=== PATIENT | female | born 1930 | race Caucasian/White ===

== ENCOUNTER 2018-10-29 18:37 | Inpatient (IN) | payer OTHER ==
[~2018-10-29] VITALS: Ht 160 cm; Wt 59.7 kg
[~2018-10-29 18:37] MED LIST: ASPI325EC PO; ATOR10 PO; CIPR500 PO; CLOP75 PO; DIAZ5 PO; DOC250 PO; HYDACE5 PO; LEVSOD50 PO; LEVSOD75 PO; LISI10 PO; LISI20 PO; LISI5 PO; MIRT15 PO; OXYACE5T PO; PROP60 PO
[2018-10-29 20:24] LABS: BASOPHILS ABSOLUTE AUTO 0.04 K/mm3 (0.00-0.23); BASOPHILS PERCENT AUTO 0 % (0-2); EOSINOPHILS ABSOLUTE AUTO 0.28 K/mm3 (0.00-0.68); EOSINOPHILS PERCENT AUTO 2 % (0-6); Hematocrit 39.3 % (33.0-51.0); Hemoglobin 12.1 g/dL (11.5-16.0); IMMATURE GRAN ABSOLUTE AUTO 0.06 K/mm3 (0.00-0.10); IMMATURE GRAN PERCENT AUTO 1 % (0-1); LYMPHOCYTES ABSOLUTE AUTO 1.33 K/mm3 (0.84-5.20); LYMPHOCYTES PERCENT AUTO 10 % (21-46); MONOCYTES ABSOLUTE AUTO 1.38 K/mm3 (0.16-1.47); MONOCYTES PERCENT AUTO 11 % (4-13); Mean Corpuscular HGB 29.1 pg (26.0-34.0); Mean Corpuscular HGB Conc 30.8 g/dL (31.5-36.5); Mean Corpuscular Volume 95 fL (80-100); Mean Platelet Volume 8.9 fL (9.1-12.4); NEUTROPHILS ABSOLUTE AUTO 9.73 K/mm3 (1.96-9.15); NEUTROPHILS PERCENT AUTO 76 % (41-73); Platelet Count 363 K/mm3 (150-400); RDW Coefficient Variation 13.5 % (11.7-14.2); RDW Standard Deviation 46.4 fL (35.1-46.3); Red Blood Cell Count 4.16 M/mm3 (3.80-5.20); White Blood Cell Count 12.82 K/mm3 (4.00-11.30)
[2018-10-29 20:43] LABS: Alanine Aminotransfer (ALT/SGP 16 U/L (12-78); Albumin, Blood 2.6 g/dL (3.4-5.0); Albumin/Globulin Ratio 0.4 (0.8-1.8); Alk Phos 109 U/L (50-136); Anion Gap 6 mmol/L (6-16); Aspartate Aminotrans (AST/SGOT 17 U/L (12-37); Bilirubin, Total 0.6 mg/dL (0.1-1.0); Blood Urea Nitrogen 12 mg/dL (8-24); Bun/Creatinine Ratio 20.2 (12.0-20.0); CO2, Blood 29 mmol/L (21-32); Chloride, Blood 105 mmol/L (98-108); Creatinine, Blood 0.59 mg/dL (0.40-1.00); Glomerular Filtration Rate >60 (60-); Glucose, Blood 88 mg/dL (70-99); Sodium, Blood 140 mmol/L (136-145); Total Protein, Blood 8.6 g/dL (6.4-8.2)
[2018-10-29 22:39] LABS: International Normalized Ratio 1.03; Prothrombin Time Results 10.9 Sec (9.7-11.5)
[2018-10-29 23:01] LABS: Source, Urine Clean Catch
[2018-10-29 23:05] LABS: Bilirubin, Urine Neg (Neg); Blood, Urine Neg (Neg); Glucose Qualitative, Urine Neg (Neg); Ketones, Urine Neg (Neg); Leukocyte Esterase, Urine Neg (Neg); Nitrite, Urine Neg (Neg); Protein, Urine Neg (Neg); Specific Gravity, Urine 1.005 (1.003-1.022); Urobilinogen, Urine NORM (Normal)
[2018-10-29 23:11] LABS: Appearance, Urine Clear (Clear); Color, Urine Yellow (P-Yellow)
[2018-10-30 01:12] LABS: Adenovirus Not Detected (NOT DETECT); Bordetella pertussis Not Detected (NOT DETECT); Chlamydophila pneumoniae Not Detected (NOT DETECT); Coronavirus 229E Not Detected (NOT DETECT); Coronavirus HKU1 Not Detected (NOT DETECT); Coronavirus NL63 Not Detected (NOT DETECT); Coronavirus OC43 Not Detected (NOT DETECT); Human Metapneumovirus Not Detected (NOT DETECT); Human Rhinovirus/Enterovirus Not Detected (NOT DETECT); Influenza A Not Detected (NOT DETECT); Influenza A/2009-H1 Not Detected (NOT DETECT); Influenza A/H1 Not Detected (NOT DETECT); Influenza A/H3 Not Detected (NOT DETECT); Influenza B Not Detected (NOT DETECT); Mycoplasma pneumoniae Not Detected (NOT DETECT); Parainfluenza Virus 1 Not Detected (NOT DETECT); Parainfluenza Virus 2 Not Detected (NOT DETECT); Parainfluenza Virus 3 Not Detected (NOT DETECT); Parainfluenza Virus 4 Not Detected (NOT DETECT); Respiratory Syncytial Virus Not Detected (NOT DETECT)
[2018-10-30 04:56] LABS: Hematocrit 32.4 % (33.0-51.0); Mean Corpuscular HGB 29.2 pg (26.0-34.0); Mean Corpuscular HGB Conc 30.9 g/dL (31.5-36.5); Mean Corpuscular Volume 95 fL (80-100); Mean Platelet Volume 8.9 fL (9.1-12.4); Platelet Count 314 K/mm3 (150-400); RDW Coefficient Variation 13.5 % (11.7-14.2); RDW Standard Deviation 46.3 fL (35.1-46.3); Red Blood Cell Count 3.43 M/mm3 (3.80-5.20); White Blood Cell Count 10.95 K/mm3 (4.00-11.30)
[2018-10-30 05:12] LABS: Alanine Aminotransfer (ALT/SGP 16 U/L (12-78); Albumin/Globulin Ratio 0.4 (0.8-1.8); Alk Phos 86 U/L (50-136); Anion Gap 6 mmol/L (6-16); Aspartate Aminotrans (AST/SGOT 15 U/L (12-37); Bilirubin, Total 0.8 mg/dL (0.1-1.0); Blood Urea Nitrogen 9 mg/dL (8-24); Bun/Creatinine Ratio 14.1 (12.0-20.0); CO2, Blood 26 mmol/L (21-32); Calcium, Blood 8.2 mg/dL (8.5-10.1); Chloride, Blood 109 mmol/L (98-108); Creatinine, Blood 0.64 mg/dL (0.40-1.00); Globulin, Blood 4.8 g/dL (2.2-4.0); Glomerular Filtration Rate >60 (60-); Glucose, Blood 85 mg/dL (70-99); Lactate Dehydrogenase (Ld),Bld 140 U/L (100-240); Potassium, Blood 3.8 mmol/L (3.5-5.5); Sodium, Blood 141 mmol/L (136-145); Total Protein, Blood 6.8 g/dL (6.4-8.2)
--- NOTE | 2018-10-30 06:10 | NUR ---
SHIFT SUMMARY PT IS AN 88 Y/O FEMALE, ADMITTED DURING THE NIGHT FOR PNA WITH A POSSIBLE EMPYEMA, ARRIVING ON THE FLOOR AT 2310. SHE IS A&O X 4, AND A SBA IN THE ROOM. THE PT DENIED ANY ACUTE SOB, NAUSEA OR PAIN, BUT DID REPORT AN INTERMITTENT NONPRODUCTIVE COUGH. VITALS STABLE. NO OTHER ACUTE CHANGES IN PT CONDITION NOTED. WILL CONTINUE TO MONITOR AND TREAT PER EMAR.
[2018-10-30 15:19] LABS: Automated BF RBC Count 0.057 M/mm3 (0-0); RBC Count, Body Fluid 57000 /mm3 (0-0)
[2018-10-30 15:32] LABS: Body Fluid WBC Count 22260 /mm3 (0-999)
[2018-10-30 15:42] LABS: Protein, Body Fluid 5.3 g/dL
[2018-10-30 15:58] LABS: Total Cell Count, Body Fluid 100
[2018-10-30 15:59] LABS: Appearance, Body Fluid Bloody (Clear); Color, Body Fluid Red (None-Yellow)
[2018-10-30 16:24] LABS: pH, Body Fluid 7.9
[2018-10-30 16:30] LABS: Lactate Dehydrogenase, Body Fl 5237 U/L
--- NOTE | 2018-10-30 18:21 | NUR ---
SHIFT SUMMARY PT HAS HAD NO COMPLAINTS SINCE THIS RN ASSUMED CARE OF PT. PT THOUGHT SHE WAS GOING HOME TODAY. THIS RN CALLED DR. FERNANDES AND TALKED WITH HIM ABOUT THIS AND HE REPORTS POSSIBLY TOMORROW. THIS RN LET THE PT KNOW THIS. NO DISTRESS AT THIS TIME. WILL CONTINUE TO MONITOR PT AND REPORT TO ONCOMING RN.
--- NOTE | 2018-10-31 06:45 | NUR ---
SHIFT SUMMARY PT IS A 88 Y/O FEMALE, ADMITTED FOR PNA. SHE IS A&O X 3, OCCASIONALLY FORGETFUL AND POSSIBLY CONFUSED AT TIMES. SHE WAS VERY EAGER TO LEAVE DURING THE NIGHT, ASKING MULTIPLE TIMES ABOUT "WHEN DOES THE DOCTOR COME AROUND", AND "WHEN DO WE GET BREAKFAST, LUNCH AND DINNER". PT HAD NO COMPLAINTS OF PAIN, NAUSEA OR SOB DURING THE NIGHT. VITALS STABLE. NO OTHER ACUTE CHANGES IN PT CONDITION NOTED. WILL CONTINUE TO MONITOR AND TREAT PER EMAR.
--- NOTE | 2018-10-31 14:05 | NUR ---
Pt is in bed resting and is doig much better today , encouraged pt and and offered prayers for ,the pt.
--- NOTE | 2018-10-31 19:02 | NUR ---
shift summary PATIENT PLEASANT, COOPERATIVE WITH CARE. HER IV WENT OUT TODAY AND WAS REPLACED BY MILADY VELASQUEZ. PATIENT DOES HAVE SOME CONFUSED MOMENT BUT OVERALL PLEASANT. NO ACUTE CONCERNS FROM PATIENT OR FAMILY DURING REPORT. WILL ASSESS FOR CHANGES AND PASS ON ANY SUGGESTIONS.
--- NOTE | 2018-11-01 04:03 | NUR ---
SHIFT SUMMARY PT HAD NO COMPLAINTS OR ISSUES NOTED. PT HAS SLEPT SINCE LEFT FOR THE NIGHT. PT CURRENTLY SLEEPING AND BREATHING EASY. CALL LIGHT IN REACH.
--- NOTE | 2018-11-01 18:37 | NUR ---
shift SUMMARY PATIENT HAS BEEN PLEASANT TODAY. NO ACUTE CONCERNS. SHE IS SCHEDULED FOR HER XRAY TOMORORW. NO SIGNS OR SYMPTOMS TODAY TO REPORT. SHE HAS GOTTEN UP INDEPENDENTLY IN THE ROOM.
--- NOTE | 2018-11-02 04:59 | NUR ---
SHIFT SUMMARY PT HAD NO ISSUES OR COMPLAINTS. PT HAS BEEN SLEEPING T/O SHIFT. PT CURRENTLY SLEEPING AND BREATHING EASY. CALL LIGHT IN REACH.
[2018-11-02] MEDS ORDERED: LEVO750 PO (12:34)
[2018-11-02] MEDS ORDERED: Augmentin 875-1 EACH PO (16:30)
--- NOTE | 2018-11-02 17:49 | NUR ---
DISCHARGE SUMMARY PATIENT PLEASANT. ALL INFORMATION GIVEN TO THE PATIENT AND HER . MEDICATIONS HAVE BEEN SENT TO THE PHARMACY AND TALKED OVER WITH THE PATIENT AND HER FAMILY. NO ACUTE CONCERNS AT TIME OF DISCHARGE. PATIENT SENT WITH PATIENT PACKET. PATIENT WHEELED OUT BY [facility].
== END 2018-11-02 18:00 | disposition home or self-care (01) | DRG 186 ==
LOC: ER 18:37 → MEDS 18:38 → ENPENDDIS 11-02 12:07 → MEDS 11-02 18:00
PROVIDERS: Emergency Medicine; ADMIT Internal Medicine
PROC: 0W993ZX Drainage of Right Pleural Cavity, Percutaneous Approach, Diagnostic (ICD-10-PCS; principal; 2018-10-30)
DX: J90 Pleural effusion, not elsewhere classified (principal); J18.1 Lobar pneumonia, unspecified organism; I10 Essential (primary) hypertension; E03.9 Hypothyroidism, unspecified; Z79.82 Long term (current) use of aspirin; Z86.73 Personal history of transient ischemic attack (TIA), and cerebral infarction without residual deficits
CPT/HCPCS: 32555; 36415; 71045; 71046; 71260; 80053; 81003; 83615; 83986; 84145; 84157; 85025; 85027; 85610; 85730; 87070; 87075; 87205; 87486; 87581; 87633; 87798; 88108; 89051; 92526; 92610; 96365-59; 96366; 96366-59; 96368; 96372; 96376; 99285-25; G0378; J1650; J2543; J3370; J7030; Q9967

== ENCOUNTER 2018-12-01 15:58 | Emergency (ER) | payer OTHER ==
[~2018-12-01] VITALS: Ht 172.7 cm; Wt 61.2 kg
[~2018-12-01 15:58] MED LIST changes: +Augmentin 875-1 EACH PO; +LEVO750 PO
[2018-12-01 17:26] LABS: BASOPHILS ABSOLUTE AUTO 0.03 K/mm3 (0.00-0.23); BASOPHILS PERCENT AUTO 0 % (0-2); EOSINOPHILS PERCENT AUTO 2 % (0-6); Hematocrit 39.9 % (33.0-51.0); IMMATURE GRAN ABSOLUTE AUTO 0.03 K/mm3 (0.00-0.10); IMMATURE GRAN PERCENT AUTO 0 % (0-1); LYMPHOCYTES ABSOLUTE AUTO 1.44 K/mm3 (0.84-5.20); LYMPHOCYTES PERCENT AUTO 18 % (21-46); MONOCYTES ABSOLUTE AUTO 0.81 K/mm3 (0.16-1.47); MONOCYTES PERCENT AUTO 10 % (4-13); Mean Corpuscular HGB Conc 30.1 g/dL (31.5-36.5); Mean Corpuscular Volume 93 fL (80-100); Mean Platelet Volume 9.3 fL (9.1-12.4); NEUTROPHILS ABSOLUTE AUTO 5.67 K/mm3 (1.96-9.15); NEUTROPHILS PERCENT AUTO 69 % (41-73); Platelet Count 317 K/mm3 (150-400); RDW Coefficient Variation 15.1 % (11.7-14.2); RDW Standard Deviation 51.5 fL (35.1-46.3); Red Blood Cell Count 4.29 M/mm3 (3.80-5.20); White Blood Cell Count 8.18 K/mm3 (4.00-11.30)
[2018-12-01 17:46] LABS: Alanine Aminotransfer (ALT/SGP 9 U/L (12-78); Albumin, Blood 2.9 g/dL (3.4-5.0); Albumin/Globulin Ratio 0.5 (0.8-1.8); Alk Phos 74 U/L (50-136); Anion Gap 7 mmol/L (6-16); Aspartate Aminotrans (AST/SGOT 19 U/L (12-37); Bilirubin, Total 0.6 mg/dL (0.1-1.0); Blood Urea Nitrogen 10 mg/dL (8-24); Bun/Creatinine Ratio 16.2 (12.0-20.0); CO2, Blood 28 mmol/L (21-32); Calcium, Blood 9.1 mg/dL (8.5-10.1); Chloride, Blood 103 mmol/L (98-108); Creatinine, Blood 0.62 mg/dL (0.40-1.00); Globulin, Blood 5.9 g/dL (2.2-4.0); Glomerular Filtration Rate >60 (60-); Glucose, Blood 86 mg/dL (70-99); Potassium, Blood 3.8 mmol/L (3.5-5.5); Sodium, Blood 138 mmol/L (136-145); Total Protein, Blood 8.8 g/dL (6.4-8.2)
== END 2018-12-02 00:29 | disposition home or self-care (01) ==
LOC: ER 15:58
PROVIDERS: Physician Assistant
DX: J90 Pleural effusion, not elsewhere classified (principal); Z79.899 Other long term (current) drug therapy; Z79.82 Long term (current) use of aspirin; I10 Essential (primary) hypertension; E03.9 Hypothyroidism, unspecified; Z86.73 Personal history of transient ischemic attack (TIA), and cerebral infarction without residual deficits
CPT/HCPCS: 36415; 71046; 80053; 83690; 85025; 99283-25

== ENCOUNTER 2018-12-09 20:20 | Inpatient (IN) | payer OTHER ==
[~2018-12-09] VITALS: Ht 160 cm; Wt 53.0 kg
[2018-12-09 21:44] LABS: BASOPHILS ABSOLUTE AUTO 0.03 K/mm3 (0.00-0.23); BASOPHILS PERCENT AUTO 0 % (0-2); EOSINOPHILS ABSOLUTE AUTO 0.04 K/mm3 (0.00-0.68); EOSINOPHILS PERCENT AUTO 0 % (0-6); Hematocrit 35.7 % (33.0-51.0); IMMATURE GRAN ABSOLUTE AUTO 0.03 K/mm3 (0.00-0.10); IMMATURE GRAN PERCENT AUTO 0 % (0-1); LYMPHOCYTES ABSOLUTE AUTO 0.73 K/mm3 (0.84-5.20); LYMPHOCYTES PERCENT AUTO 7 % (21-46); MONOCYTES ABSOLUTE AUTO 0.91 K/mm3 (0.16-1.47); MONOCYTES PERCENT AUTO 9 % (4-13); Mean Corpuscular HGB 28.5 pg (26.0-34.0); Mean Corpuscular HGB Conc 30.8 g/dL (31.5-36.5); Mean Corpuscular Volume 93 fL (80-100); Mean Platelet Volume 8.9 fL (9.1-12.4); NEUTROPHILS ABSOLUTE AUTO 8.76 K/mm3 (1.96-9.15); NEUTROPHILS PERCENT AUTO 83 % (41-73); Platelet Count 235 K/mm3 (150-400); RDW Coefficient Variation 14.8 % (11.7-14.2); RDW Standard Deviation 50.3 fL (35.1-46.3); Red Blood Cell Count 3.86 M/mm3 (3.80-5.20)
[2018-12-09 22:01] LABS: Alanine Aminotransfer (ALT/SGP 9 U/L (12-78); Albumin, Blood 2.8 g/dL (3.4-5.0); Albumin/Globulin Ratio 0.5 (0.8-1.8); Alk Phos 72 U/L (50-136); Anion Gap 6 mmol/L (6-16); Aspartate Aminotrans (AST/SGOT 18 U/L (12-37); Blood Urea Nitrogen 10 mg/dL (8-24); Bun/Creatinine Ratio 16.3 (12.0-20.0); CO2, Blood 28 mmol/L (21-32); Calcium, Blood 8.8 mg/dL (8.5-10.1); Chloride, Blood 105 mmol/L (98-108); Creatinine, Blood 0.61 mg/dL (0.40-1.00); Globulin, Blood 5.1 g/dL (2.2-4.0); Glomerular Filtration Rate >60 (60-); Glucose, Blood 103 mg/dL (70-99); Potassium, Blood 4.1 mmol/L (3.5-5.5); Sodium, Blood 139 mmol/L (136-145); Total Protein, Blood 7.9 g/dL (6.4-8.2)
[2018-12-10 11:04] LABS: Hematocrit 36.5 % (33.0-51.0); Hemoglobin 11.2 g/dL (11.5-16.0); Mean Corpuscular HGB 28.7 pg (26.0-34.0); Mean Corpuscular HGB Conc 30.7 g/dL (31.5-36.5); Mean Corpuscular Volume 94 fL (80-100); Platelet Count 203 K/mm3 (150-400); RDW Coefficient Variation 14.8 % (11.7-14.2); RDW Standard Deviation 50.8 fL (35.1-46.3); White Blood Cell Count 7.59 K/mm3 (4.00-11.30)
[2018-12-10 11:17] LABS: Alanine Aminotransfer (ALT/SGP 8 U/L (12-78); Albumin, Blood 2.5 g/dL (3.4-5.0); Albumin/Globulin Ratio 0.5 (0.8-1.8); Alk Phos 63 U/L (50-136); Anion Gap 3 mmol/L (6-16); Aspartate Aminotrans (AST/SGOT 15 U/L (12-37); Blood Urea Nitrogen 9 mg/dL (8-24); CO2, Blood 30 mmol/L (21-32); Calcium, Blood 8.3 mg/dL (8.5-10.1); Chloride, Blood 109 mmol/L (98-108); Creatinine, Blood 0.56 mg/dL (0.40-1.00); Globulin, Blood 4.7 g/dL (2.2-4.0); Glomerular Filtration Rate >60 (60-); Glucose, Blood 79 mg/dL (70-99); Potassium, Blood 3.9 mmol/L (3.5-5.5); Sodium, Blood 142 mmol/L (136-145); Total Protein, Blood 7.2 g/dL (6.4-8.2)
[2018-12-12] MEDS ORDERED: ACET500 PO (12:58)
== END 2018-12-12 14:46 | disposition home or self-care (01) | DRG 481 ==
LOC: ER 20:20 → SURS 22:53
PROVIDERS: Emergency Medicine; Orthopaedic Surgery; ADMIT Internal Medicine
PROC: 0QS734Z Reposition Left Upper Femur with Internal Fixation Device, Percutaneous Approach (ICD-10-PCS; principal; 2018-12-10 15:45)
DX: S72.002A Fracture of unspecified part of neck of left femur, initial encounter for closed fracture (principal); J90 Pleural effusion, not elsewhere classified; E03.9 Hypothyroidism, unspecified; I10 Essential (primary) hypertension; W18.30XA Fall on same level, unspecified, initial encounter; E78.5 Hyperlipidemia, unspecified; R13.10 Dysphagia, unspecified; I69.391 Dysphagia following cerebral infarction
CPT/HCPCS: 36415; 71045; 73502; 80053; 83605; 85025; 85027; 85730; 87040; 92526; 92610; 93005; 93010; 96374; 96375; 97116; 97162; 97530; 99285-25; C1713; C1769; J0360; J0690; J0780; J1100; J1650; J2370; J2405; J2704; J3010; J7030; J7120

== ENCOUNTER 2021-05-10 11:30 | Inpatient (IN) | payer OTHER, MEDICARE ==
[~2021-05-10] VITALS: Ht 167.6 cm; Wt 60.9 kg
[~2021-05-10 11:30] MED LIST changes: +ACET500 PO
[2021-05-10 11:57] LABS: BASOPHILS ABSOLUTE AUTO 0.03 K/mm3 (0.00-0.23); BASOPHILS PERCENT AUTO 0 % (0-2); EOSINOPHILS ABSOLUTE AUTO 0.08 K/mm3 (0.00-0.68); EOSINOPHILS PERCENT AUTO 1 % (0-6); Hematocrit 40.7 % (33.0-51.0); Hemoglobin 13.5 g/dL (11.5-16.0); IMMATURE GRAN ABSOLUTE AUTO 0.03 K/mm3 (0.00-0.10); IMMATURE GRAN PERCENT AUTO 0 % (0-1); LYMPHOCYTES ABSOLUTE AUTO 1.03 K/mm3 (0.84-5.20); LYMPHOCYTES PERCENT AUTO 14 % (21-46); MONOCYTES ABSOLUTE AUTO 0.58 K/mm3 (0.16-1.47); MONOCYTES PERCENT AUTO 8 % (4-13); Mean Corpuscular HGB 30.4 pg (26.0-34.0); Mean Corpuscular HGB Conc 33.2 g/dL (31.5-36.5); Mean Corpuscular Volume 92 fL (80-100); Mean Platelet Volume 9.6 fL (9.1-12.4); NEUTROPHILS ABSOLUTE AUTO 5.53 K/mm3 (1.96-9.15); NEUTROPHILS PERCENT AUTO 76 % (41-73); Platelet Count 241 K/mm3 (150-400); RDW Coefficient Variation 12.8 % (11.7-14.2); RDW Standard Deviation 42.8 fL (35.1-46.3); Red Blood Cell Count 4.44 M/mm3 (3.80-5.20); White Blood Cell Count 7.28 K/mm3 (4.00-11.30)
[2021-05-10 12:12] LABS: Alanine Aminotransfer (ALT/SGP 18 U/L (12-78); Albumin, Blood 3.2 g/dL (3.4-5.0); Albumin/Globulin Ratio 0.7 (0.8-1.8); Alk Phos 61 U/L (50-136); Anion Gap 5 mmol/L (6-16); Aspartate Aminotrans (AST/SGOT 30 U/L (12-37); Bilirubin, Total 0.5 mg/dL (0.1-1.0); Blood Urea Nitrogen 17 mg/dL (8-24); Bun/Creatinine Ratio 29.9 (12.0-20.0); CO2, Blood 27 mmol/L (21-32); Calcium, Blood 9.1 mg/dL (8.5-10.1); Chloride, Blood 110 mmol/L (98-108); Creatinine, Blood 0.57 mg/dL (0.40-1.00); Globulin, Blood 4.4 g/dL (2.2-4.0); Glomerular Filtration Rate >60 (60-); Glucose, Blood 100 mg/dL (70-99); Potassium, Blood 4.6 mmol/L (3.5-5.5); Sodium, Blood 142 mmol/L (136-145); Total Protein, Blood 7.6 g/dL (6.4-8.2)
[2021-05-10] MEDS ORDERED: ACET325 PO (17:38)
[2021-05-10] MEDS ORDERED: ASPI81CH PO (17:39)
[2021-05-10] MEDS ORDERED: ATOR10 PO (17:40)
[2021-05-10] MEDS ORDERED: EUTHYROX50 MCG PO (17:41)
[2021-05-10] MEDS ORDERED: ZESTRIL40 M1 PO (17:43)
[2021-05-10] MEDS ORDERED: INDERAL XL120 MG PO (17:44)
--- NOTE | 2021-05-10 19:22 | NUR ---
TRANSFER NOTE REPORT BY PREVIOUS RN. PT TO ROOM 301 BY RAYA AND TRANSFERRED TO BED. CALL LIGHT IN REACH. BED IN LOWEST POSITION.
--- NOTE | 2021-05-10 19:23 | NUR ---
PT NOT ALERT AT TIME OF ARRIVAL TO ROOM. PT WILL MOVE THE LEFT HAND TO PULL HER BLANKETS UP BUT DOES NOT OPEN HER EYES OR RESPOND WHEN ADDRESSED. PT WITH INTERMITTENT SNORING.
[2021-05-10] MEDS ORDERED: OMEP20ER PO (19:31)
--- NOTE | 2021-05-11 01:09 | NUR ---
PT PULLED BREWER CATHETER. ATTENDS WITH LARGE URINE OUTPUT. 250 ML IN BLADDER POST VOID PER BLADDER SCAN. BREWER REPLACEMENT HELD AT THIS TIME.
--- NOTE | 2021-05-11 04:52 | NUR ---
GRAPHICS PROGRAMMER SUMMARY ADMITTED FOR CVA. PT IS FULL CODE. PLAN FOR FOLLOW UP CT TODAY TO EVALUATE BRAIN DAMAGE. PT HAS BEEN MINIMALLY RESPONSIVE THROUGHOUT THE SHIFT. PT NOT OPENING EYES, FOLLOWING MINIMAL COMMANDS. NONVERBAL. PT PULLED BREWER CATHETER OUT AND NEW ONE WAS NOT PLACED DUE TO WET ATTENDS. PT RECEIVING IV FLUIDS. DAUGHTER IS ON HER WAY FROM [place] TO SEE PT.
[2021-05-11 06:03] LABS: BASOPHILS ABSOLUTE AUTO 0.03 K/mm3 (0.00-0.23); BASOPHILS PERCENT AUTO 0 % (0-2); EOSINOPHILS PERCENT AUTO 0 % (0-6); Hematocrit 37.4 % (33.0-51.0); Hemoglobin 12.3 g/dL (11.5-16.0); IMMATURE GRAN ABSOLUTE AUTO 0.06 K/mm3 (0.00-0.10); IMMATURE GRAN PERCENT AUTO 0 % (0-1); LYMPHOCYTES ABSOLUTE AUTO 0.72 K/mm3 (0.84-5.20); LYMPHOCYTES PERCENT AUTO 5 % (21-46); MONOCYTES ABSOLUTE AUTO 1.49 K/mm3 (0.16-1.47); MONOCYTES PERCENT AUTO 11 % (4-13); Mean Corpuscular HGB 30.2 pg (26.0-34.0); Mean Corpuscular HGB Conc 32.9 g/dL (31.5-36.5); Mean Corpuscular Volume 92 fL (80-100); Mean Platelet Volume 10.1 fL (9.1-12.4); NEUTROPHILS ABSOLUTE AUTO 11.61 K/mm3 (1.96-9.15); NEUTROPHILS PERCENT AUTO 84 % (41-73); Platelet Count 239 K/mm3 (150-400); RDW Coefficient Variation 12.9 % (11.7-14.2); RDW Standard Deviation 43.1 fL (35.1-46.3); Red Blood Cell Count 4.07 M/mm3 (3.80-5.20); White Blood Cell Count 13.91 K/mm3 (4.00-11.30)
[2021-05-11 07:03] LABS: Alanine Aminotransfer (ALT/SGP 14 U/L (12-78); Albumin/Globulin Ratio 0.8 (0.8-1.8); Alk Phos 58 U/L (50-136); Anion Gap 8 mmol/L (6-16); Aspartate Aminotrans (AST/SGOT 17 U/L (12-37); Bilirubin, Total 1.1 mg/dL (0.1-1.0); Blood Urea Nitrogen 14 mg/dL (8-24); Bun/Creatinine Ratio 26.2 (12.0-20.0); CO2, Blood 24 mmol/L (21-32); Calcium, Blood 8.9 mg/dL (8.5-10.1); Chloride, Blood 112 mmol/L (98-108); Creatinine, Blood 0.54 mg/dL (0.40-1.00); Globulin, Blood 3.7 g/dL (2.2-4.0); Glomerular Filtration Rate >60 (60-); Glucose, Blood 119 mg/dL (70-99); Magnesium, Blood 1.7 mg/dL (1.6-2.4); Potassium, Blood 3.6 mmol/L (3.5-5.5); Sodium, Blood 144 mmol/L (136-145); Total Protein, Blood 6.7 g/dL (6.4-8.2)
[2021-05-11 08:45] LABS: CHOL/HDL RATIO 2.5; Cholesterol 125 mg/dL (50-200); HDL Cholesterol 51 mg/dL (>39); LDL/HDL RATIO 1.2; Low Density Lipoprotein Chol 60 mg/dL (0-110); Triglycerides 71 mg/dL (30-160); Very Low Density Lipoprot Chol 14 mg/dL (6-32)
--- NOTE | 2021-05-11 15:00 | NUR ---
SPOKE TO PT DAUGHTER AND SPOUSE- BOTH SEEM TO AGREE THAT THE PT CODE STATUS SHOULD BE CHANGED TO DNR. SPOUSE AND DAUGHTER BOTH BELIEVE SHE WOULD NOT WANT TO LIVE LIKE SHE IS NOW. PALLIATIVE CARE IS CONSULTED HOWEVER IS UNAVAILABLE TODAY. DR MANSFIELD PT DAUGHTER AND SPOUSE ARE AT THE BEDSIDE AND WANT TO DISCUSS THE PT PROGNOSIS. PT STILL REMAINS UNRESPONSIVE AND NON-VERBAL. NO S&S OF DISCOMFORT OR DISTRESS.
--- NOTE | 2021-05-11 16:38 | NUR ---
PT SPOUSE AND DAUGHTER MET WITH DR BROWNING. CODE STATUS WAS CHANGED TO DNR, PER FAMILY THIS WAS THE PT WISH. PLAN AT THIS TIME IS TO WAIT AN ADDITIONAL 24 HOURS TO SEE HOW THE STROKE EVOLVES. PALLIATIVE CARE HAS BEEN CONSULTED, PT DAUGHTER AND SPOUSE WOULD LIKE TO SPEAK WITH PALLIATIVE CARE WHEN THEY ARE AVAILABLE TO DISCUSS ADVANCED CARE PLANNING. WILL PASS ON IN REPORT TO NIGHT RN.
--- NOTE | 2021-05-11 18:13 | NUR ---
SHIFT SUMMARY- PT HAS HAD NO CHANGE T/O THE DAY TODAY. PT HAS BEEN INCONTINENT OF URINE T/O THE DAY. NON-RESPONSIVE, NON-VERBAL, PT DOES FIDGET WHEN HER ATTENDS GET WET. PT CAN MOVE THE LEFT ARM AND LEG. PT DOES NOT OPEN EYES, WHEN STAFF OPEN THEM TO CHECK PUPIL RESPONSES, PUPILARY RESPONSE SEEMS NORMAL HOWEVER THERE IS A LEFT GAZE NOTED. LEFT SIDED FACIAL DROOP NOTED TODAY. PT CODE STATUS CHANGED TO DNR. PLAN TO [place] ANOTHER DAY TO SEE HOW THE STROKE EVOLVES BEFORE MAKING ANY DECISIONS. FAMILY WOULD LIKE TO MEET WITH PALLIATIVE CARE TOMORROW IF POSSIBLE. WILL PASS ON TO NIGHT RN TO HAVE DAY SHIFT RN TOMORROW SPEAK TO PALLIATIVE CARE SO THEY ARE AWARE OF THE FAMILY'S REQUEST. PT CURRENTLY LAYING IN BED, CALL LIGHT IN REACH NO S&S OF PAIN OR DISTRESS NOTED. WILL CTM AND PASS ON TO NIGHT RN IN BEDSIDE REPORT.
[2021-05-12 04:59] LABS: Hematocrit 38.6 % (33.0-51.0); Hemoglobin 12.4 g/dL (11.5-16.0); Mean Corpuscular HGB Conc 32.1 g/dL (31.5-36.5); Mean Corpuscular Volume 94 fL (80-100); Platelet Count 187 K/mm3 (150-400); RDW Coefficient Variation 13.2 % (11.7-14.2); RDW Standard Deviation 45.1 fL (35.1-46.3); Red Blood Cell Count 4.13 M/mm3 (3.80-5.20); White Blood Cell Count 14.46 K/mm3 (4.00-11.30)
[2021-05-12 05:18] LABS: Anion Gap 9 mmol/L (6-16); Blood Urea Nitrogen 16 mg/dL (8-24); Bun/Creatinine Ratio 31.4 (12.0-20.0); CO2, Blood 22 mmol/L (21-32); Calcium, Blood 8.8 mg/dL (8.5-10.1); Chloride, Blood 113 mmol/L (98-108); Creatinine, Blood 0.51 mg/dL (0.40-1.00); Glomerular Filtration Rate >60 (60-); Glucose, Blood 124 mg/dL (70-99); Potassium, Blood 3.4 mmol/L (3.5-5.5); Sodium, Blood 144 mmol/L (136-145)
--- NOTE | 2021-05-12 06:37 | NUR ---
PT REMAINS UNRESPONSIVE. NO MOVEMENT TO EXTREMITIES ON RIGHT SIDE. + MOVEMENT TO EXTREMITIES IN LEFT SIDE. IVFs CONTINUED. ON TELEMETRY, PT IS SINUS RHYTHM WITH INVERTED T WAVE PER DEVELOPMENT ANALYST, SEPTEMBER. NPO STATUS MAINTAINED. BED IN LOW POSITION WITH SAFETY PRECAUTIONS MAINTAINED.
--- NOTE | 2021-05-12 17:47 | NUR ---
SHIFT SUMMARY PT HAS BEEN MOVED TO COMFORT CARE. NO IV ACCESS, TELE REMOVED, AND A BREWER IN PLACE DRAINING DARK BROWN URINE. SHE IS ON 2 L FOR COMFORT BY HER NASAL CANNULA. FAMILY WAS IN TO SEE HER TODAY AND WE SPOKE ABOUT WHAT COMFORT CARE MEANS FOR HER AND THE MEDICATIONS WE HAD ORDERED. THEY ARE AGREEABLE AND WILL SPEAK WITH PALLIATIVE ON SATURDAY. WILL CONTINUE TO MONITOR PT.
--- NOTE | 2021-05-13 04:47 | NUR ---
SHIFT SUMMARY ADMITTED FOR CVA. DNR CODE. COMFORT CARE. 2 LPM O2. BREWER CATH IS IN PLACE. ATTENDS IS IN PLACE. SCOPALAMINE PATCH IS IN PLACE. RIGHT SIDE IS FLACCID. LEFT FACIAL DROOP. Q 2 TURNS. SHE IS NPO AFTER HAVING FAILED SWALLOW EVAL. SHE IS NONCOMMUNICATIVE. NO NEW CONCERNS THIS SHIFT
--- NOTE | 2021-05-13 10:49 | NUR ---
Comfort care visit for Paulina this morning. She is currently sleeping and appears to not be in any distress. No family is currently in her room. Spoke with [facility] nurse [facility], [facility] will continue to remain available for pt/family support and education as needed.
--- NOTE | 2021-05-13 16:34 | NUR ---
SHIFT SUMMARY NO ACUTE CHANGES IN ASSESSMENT TODAY. PT APPEARS COMFORTABLE AND CALM. PT'S DAUGHTER VISITED FOR A FEW HOURS TODAY. BOTHER WERE UPDATED ON PT AND HAPPY WITH HER CARE AT THIS TIME. REPOSITIONED A2 AND ORAL CARE PT ALLOWS. PT MOSTLY UNRESPONSIVE T/O THIS SHIFT.
--- NOTE | 2021-05-13 22:50 | NUR ---
pT HAS SOME SECRETIONS, HAS SCOPOLAMIN PATCH ON, REPOSITIONED TO LEFT SIDE, PT LOOKS MORE COMFORTABLE. pT IS MOANING AT TIMES, SEEMS RESTLESS, MOVES LEFT ARM, EYE LIDS FLUTTER. wILL MEDICATE PER AUG.
--- NOTE | 2021-05-14 01:11 | NUR ---
PT IS RESTING QUIETLY, MILD GURGLING OF SECRETIONS DEEP IN THROAT AT TIMES. MOVES LEGS A LITTLE AT TIMES. ABLE TO MOVE LEFT ARM.
--- NOTE | 2021-05-14 04:52 | NUR ---
PATIENT IS MORE RESTLESS, REPOSITIONED, HIPS FLOATED. PT WAS MEDICATED WITH 10 MG ROXANOL. 1 BLANKET REMOVED, PT FEELS WARM, FACE IS FLUSHED., COOL CLOTH TO LIPS. wILL CONTINUE TO MONITOR. DID SQUEEZE MY HAND ON REQUEST WITH HER LEFT HAND. fIDGETS WITH PILLOWS AND BLANKET.
--- NOTE | 2021-05-14 06:40 | NUR ---
Rn summary: Patient has been turned q2 hours, does not open eyes. Does move Left hand, fidgets with blanket and pillow. Pt medicated x2 with 10mg of roxanol SL. Pt rests well afterward. Flores is patent. Pt clamps teeth, does not allow oral care. Lip care given. Pt remains comfort care.
--- NOTE | 2021-05-14 18:09 | NUR ---
SHIFT SUMMARY PT APPEARS COMFORTABLE AND BREATHING EASY T/O SHIFT. BED BATH COMPLETED TODAY. PTS DAUGHTERS AND IN TO VISIT WELL. NO CHANGES. PT RESTING IN BED. BREWER PATENT & DRAINING. CALL LIGHT IN REACH.
--- NOTE | 2021-05-14 18:19 | NUR ---
Pt appears to be resting comfortably, no s/s of distress or of pain noted. Continue with current plan.
--- NOTE | 2021-05-14 20:32 | NUR ---
Pt repositioned to rt side, mouth moistened. Flores cath care done. Pt grimaces with movement, restless with covers. Medicated with roxanol 10mg SL. Will continue to monitor.
--- NOTE | 2021-05-14 23:18 | NUR ---
PT HAS HAD GOOD RELIEF FROM PAIN MED, HAS BEEN REPOSITIONED X2 BY SANITATION WORKER HOSING MACHINERY. RESTING WITHOUT SIGNS OF DISTRESS.
--- NOTE | 2021-05-15 06:50 | NUR ---
RN SUMMARY: PATIENT REMAINS MOSTLY NONINTERACTIVE. PT DID OPEN L EYE AT TIMES. PT MOVES L ARM. SHE DOES NOT LIKE COVERS ON HER ARMS. PT DID MOAN IN DISCOMFORT AT TIMES. MEDICATED WITH ROXANOL X2 AT 2025 AND 604. PT HAS VERY SLIGHT SECREATIONS. ORAL SUCTION X1. PT DOES CLAMP TEETH, MOISTURIZER TO LIPS. BREWER WITH RITA URINE. REPOSITIONED Q 2 HOURS. REMAINS COMFORT CARE.
--- NOTE | 2021-05-15 19:11 | NUR ---
SHIFT SUMMARY NO ACUTE CHANGES THIS SHIFT. PT KEPT CLEAN, DRY AND MEDICATED FOR PAIN ONLY TWICE. PATIENTS CAME IN AND WE DISCUSSED PLAN TO BE DISCHARGED ON HOSPICE. WILL CONTINUE TO MONITOR.
--- NOTE | 2021-05-15 21:07 | NUR ---
Patient is resting quietly. opens eyes to voice and touch. Oral care given to front of teeth and lips, pt clamps down teeth. Flores cath is patent with leora colored urine. Turned to left side. Moves left arm spontaniously.
--- NOTE | 2021-05-16 05:10 | NUR ---
Pt with eyes open, facial grimace, increased secretions. Pt repositioned to back with HOB up. Medicated with 10mg Roxanol and atropine drops.
--- NOTE | 2021-05-16 06:33 | NUR ---
Rn summary: Patient remains on comfort care. Pt eyes have been open more tonight. Patient has been turned q 2 hours, diaz with leora urine. Medicated x1 for pain and secretions. Nonverbal. Plan is for DC on hospice when arangements are decided.
--- NOTE | 2021-05-16 12:31 | NUR ---
Comfort Care: Pt is generally non-responsive at this time. She occasionally moans or grimaces, but usually only with repositioning. Currently appears relaxed, with no s/s of pain or anxiety. She draws her head to the left side, even with repositioning. She is no longer taking anything PO, and only occasionally and slightly opens her eyes. No changes to care plan needed at this time.
--- NOTE | 2021-05-16 15:14 | NUR ---
Met pt. lying in bed, no family member in the room.pt.is suffering of stroke ,unable to talk. prayed for her.
--- NOTE | 2021-05-16 15:46 | NUR ---
follow up visit pt porgressing. Volunteer visit for theraputic touch.
--- NOTE | 2021-05-16 17:07 | NUR ---
SHIFT SUMMARY NO ACUTE CHANGES THIS SHIFT. PT IS RESTING PEACEFULLY, BED BATH GIVEN THIS MORNING AND PT MEDICATED FOR PAIN BEFORE THEN, PT HAS BEEN ASLEEP AND NON RESPONSIVE SINCE THEN. WILL CONTINUE TO MONITOR.
--- NOTE | 2021-05-17 01:12 | NUR ---
PT on comfort care after CVA was nonresponsive this shift, turned repostioned personal cares completed, at 0040 PT had no resp no pulse. dictaphone mechanicRON [place] notified. Spouse Yovanny has prearrangements at [facility]. Personal belongings only PJS. mortuary called by dictaphone mechanic
== END 2021-05-17 00:40 | DRG 64 ==
LOC: ER 11:30 → ERHOLD 16:34 → MEDS 16:34
PROVIDERS: Emergency Medicine; Internal Medicine; ADMIT Family Medicine
DX: I63.512 Cerebral infarction due to unspecified occlusion or stenosis of left middle cerebral artery (principal); J96.21 Acute and chronic respiratory failure with hypoxia; J69.0 Pneumonitis due to inhalation of food and vomit; G81.91 Hemiplegia, unspecified affecting right dominant side; G93.49 Other encephalopathy; Z51.5 Encounter for palliative care; I10 Essential (primary) hypertension; E03.9 Hypothyroidism, unspecified; R29.810 Facial weakness; Z66 Do not resuscitate; E78.5 Hyperlipidemia, unspecified; Z86.73 Personal history of transient ischemic attack (TIA), and cerebral infarction without residual deficits; Z98.890 Other specified postprocedural states; Z79.899 Other long term (current) drug therapy; R79.89 Other specified abnormal findings of blood chemistry; Z79.82 Long term (current) use of aspirin
CPT/HCPCS: 36415; 51702; 51798; 70450; 70496; 70498; 71045; 80053; 80061; 80069; 83036; 83735; 84145; 84484; 85025; 85027; 93005; 93010; 93306; 94640; 94760; 94762; 96374-59; 99285-25; A9270; J1650; J7030; Q9967